=== PATIENT | female | born 1995 | race African-American/Black ===

== ENCOUNTER → 2019-09-06 | Outpatient (CLI) | payer BC | LOC: M LABSMTC 11:32 | PROVIDERS: ATTEND Family Medicine | DX: Z11.59 Encounter for screening for other viral diseases (principal); Z20.828 Contact with and (suspected) exposure to other viral communicable diseases | CPT/HCPCS: 87486; 87581; 87633; 87798; U0002 ==

== ENCOUNTER → 2020-06-11 | Outpatient (CLI) | payer BC, OTHER ==
[2020-06-11 15:10] LABS: HCG, SERUM QUALITATIVE NEGATIVE (NEGATIVE)
[2020-06-11 15:17] LABS: PROGESTERONE 19.74 NG/ML
== END ==
LOC: M LAB 11:51
PROVIDERS: ATTEND Obstetrics & Gynecology Obstetrics
DX: N97.9 Female infertility, unspecified (principal)

== ENCOUNTER → 2020-07-14 | Outpatient (CLI) | payer BC, OTHER ==
[2020-07-14 18:25] LABS: PROGESTERONE 24.21 NG/ML
[2020-07-14 18:33] LABS: HCG, SERUM QUALITATIVE POSITIVE (NEGATIVE)
== END ==
LOC: M LAB 16:58
PROVIDERS: ATTEND Obstetrics & Gynecology Obstetrics
DX: N97.9 Female infertility, unspecified (principal)